=== PATIENT | female | born 1990 | race Caucasian/White ===

== ENCOUNTER → 2020-05-19 16:36 | Outpatient (CLI) | payer BC, SELFPAY ==
[2015-03-31 12:14] VITALS: BMI 41.2
[2020-05-19 17:38] LABS: Absolute Lymphocyte Count 2.67 X10^3/uL (0.83-4.51); Absolute Neutrophil Count 6.6 X10^3/uL (2.0-7.7); Basophil# 0.06 X10^3/uL; Basophil% 0.6 % (0-1); Eosinophil# 0.09 X10^3/uL; Eosinophils% 0.9 % (0-5); Hematocrit 40.1 % (37-47); Hemoglobin 12.9 g/dL (12.0-15.0); Lymphocyte # 2.67 X10^3/ul (4.0); Lymphocyte % 27.2 % (19-41); Mean Corp Hgb Conc 32.2 g/dL (32-36); Mean Platelet Vol. 8.5 fl (6.2-12.0); Monocyte% 4.1 % (0-10); NRBC Flagged by Analyzer 0 % (0-5); Neutrophil # 6.55 X10^3/uL (2.7-7.7); Neutrophil % 66.6 % (47-70); Platelet Count 384 K/mm3 (150-450); RBC Distribution Width CV 14.1 % (11.6-14.6); RBC Distribution Width SD 44.8 fl (35.1-43.9); Red Blood Count 4.61 M/mm3 (4.2-5.4); White Blood Count 9.8 K/mm3 (4.4-11.0)
[2020-05-19 18:14] LABS: ALB/GLOB Ratio 0.8 RATIO (0.9-2.4); AST(SGOT) 16 U/L (15-37); Alanine Aminotransfer ALT/SGPT 37 U/L (13-56); Albumin, Serum 3.6 g/dL (3.2-5.0); Alkaline Phosphatase 112 U/L (45-117); Anion Gap 8 (5-15); BUN 15 mg/dL (7-18); BUN/Creat Ratio 17.8 RATIO (10-20); Calcium,Total 9.4 mg/dL (8.5-10.1); Chloride 106 mmol/L (98-107); Creatinine, Serum 0.84 mg/dL (0.55-1.02); EST Glomerular Filtration Rate 85 mL/min (>60); Est Glom Filt Rate - Afr Amer 102 mL/min (>60); Globulin 4.6 g/dL (2.2-4.2); Glucose 115 mg/dL (74-106); Potassium 3.8 mmol/L (3.5-5.1); Protein, Total 8.2 g/dL (6.4-8.2); Sodium Level 139 mmol/L (136-145); Thyroid Stim Hormone (TSH) 5.19 uIU/mL (0.358-3.74)
[2020-05-23 21:13] LABS: HPV Reflexed? NOT INDICATED
== END ==
PROVIDERS: PCP Family Medicine; Referring Provider Family Medicine; Visit Provider Registered Nurse
DX: Z00.00 Encounter for general adult medical examination without abnormal findings (principal)
CPT/HCPCS: 36415; 80053; 84443; 85025; 88175; G0145

== ENCOUNTER → 2020-05-23 16:46 | Outpatient (CLI) | payer BC, SELFPAY ==
[2015-03-31 12:14] VITALS: BMI 41.2
[2020-05-23 19:23] LABS: Free T3 2.6 pg/mL (2.18-3.98); T4 Free Direct 0.75 ng/dL (0.76-1.46)
[2020-06-05 12:25] LABS: Anti-Thyroglobulin AB 4.1 IU/mL (0.0-0.9); Thyroglobulin RIA 13 ng/mL (.)
== END ==
PROVIDERS: PCP Family Medicine; Referring Provider Family Medicine; Visit Provider Registered Nurse
DX: E03.9 Hypothyroidism, unspecified (principal)
CPT/HCPCS: 36415; 84432; 84439; 84481; 86800

== ENCOUNTER → 2020-07-03 09:36 | Outpatient (CLI) | payer BC, SELFPAY ==
[2015-03-31 12:14] VITALS: BMI 41.2
== END ==
PROVIDERS: PCP Family Medicine; Visit Provider Family Medicine
DX: E03.9 Hypothyroidism, unspecified (principal)
CPT/HCPCS: 36415; 84443

== ENCOUNTER → 2020-11-03 09:22 | Outpatient (CLI) | payer BC, SELFPAY ==
[2015-03-31 12:14] VITALS: BMI 41.2
[2020-11-03 11:05] LABS: Anion Gap 6 (5-15); BUN 12 mg/dL (7-18); BUN/Creat Ratio 14.2 RATIO (10-20); Calcium,Total 8.8 mg/dL (8.5-10.1); Chloride 104 mmol/L (98-107); Cholesterol 211 mg/dL (200); Creatinine, Serum 0.85 mg/dL (0.55-1.02); EST Glomerular Filtration Rate 84 mL/min (>60); Est Glom Filt Rate - Afr Amer 102 mL/min (>60); Free T3 2.9 pg/mL (2.18-3.98); Glucose 115 mg/dL (74-106); High Density Lipoprotein 31 mg/dL; Potassium 4.1 mmol/L (3.5-5.1); Sodium Level 137 mmol/L (136-145); T4 Free Direct 1.06 ng/dL (0.76-1.46); Thyroid Stim Hormone (TSH) 1.89 uIU/mL (0.358-3.74); Triglycerides 133 mg/dL; Very Low Density Lipoprotein 27 mg/dL (5-40)
== END ==
PROVIDERS: PCP Family Medicine; Visit Provider Family Medicine
DX: E78.5 Hyperlipidemia, unspecified (principal); E03.9 Hypothyroidism, unspecified
CPT/HCPCS: 36415; 80048; 80061; 83036; 84439; 84443; 84481

== ENCOUNTER 2020-11-17 09:36 | Emergency (ER) | payer BC, SELFPAY ==
[2020-11-17 09:38] VITALS: BP 151/105; PULSE 105; RESP 18; TEMP 36.5; O2SAT 97; BMI 54.2
--- NOTE | 2020-11-17 09:53 | EDS_ITS ---
HPI History of Present Illness Chief Complaint: Flank Pain Informant: patient Onset/Context/Timing Onset: Yesterday Context: Gradual Onset Timing: Waxes and wanes Current Severity: Moderate Maximum Severity: Severe Narrative Narrative: Patient presents secondary to right flank pain. She states pain started around 4 PM yesterday afternoon. It was primarily in her back and is now radiating down into the groin line. She is had nausea and vomiting. She denies fever or chills. No dysuria. She does report feeling the urge to urinate frequently but only goes small amounts. Patient was seen at urgent care. Urinalysis there reportedly did show blood in her urine. She was sent here due to concern for kidney stone. [facility] Medical History (Updated 11/17/20 @ 11:[address] Khushboo Mcdaniel MD) High cholesterol Hypothyroid Prediabetes Home Medications hydrocodone-acetaminophen 1 tab PO Q6H PRN 3 Days #10 tab 11/17/20 [Rx Last Taken Unknown] ketorolac 10 mg PO Q6H PRN 3 Days #14 tab 11/17/20 [Rx Last Taken Unknown] levothyroxine 100 mcg PO DAILY 11/17/20 [History Last Taken Unknown] metformin 500 mg PO DAILY 11/17/20 [History Last Taken Unknown] ondansetron 4 mg PO Q8H PRN #10 tab 11/17/20 [Rx Last Taken Unknown] rosuvastatin 5 mg PO DAILY 11/17/20 [History Last Taken Unknown] Allergy/AdvReac Type Severity Reaction Status Date / Time No Known Allergies Allergy Verified 11/17/20 09:37 Surgical History (Updated 11/17/20 @ 09:58 by Rachel Massey) History of cholecystectomy History of tonsillectomy and adenoidectomy Social History Smoking Status: Never smoker ROS ROS ED Constitutional Constitutional ED: Denies chills or fever(s) Eyes Eyes: Denies change in vision ENT ENT ED: Denies sore throat Cardiovascular Cardiovascular: Denies chest pain Respiratory/Chest Respiratory/Chest: Denies cough or dyspnea Gastrointestinal Gastrointestinal: Reports abdominal pain, nausea and vomiting; Denies diarrhea Genitourinary Genitourinary ED: Reports urinary frequency; Denies dysuria Musculoskeletal Musculoskeletal: Reports back pain Integumentary Denies rash Neurologic Neurologic: Denies headache(s) or weakness Psychiatric Psychiatric: Denies anxiety or depression Endocrine Endocrinology: Denies polydipsia or polyuria Allergic/Immunologic Allergic/Immunologic ED: Denies urticaria EXAM Physical Exam Const Vital Signs: 11/17/20 09:38 Temperature 97.7 F L Temperature Source Oral Pulse Rate 105 H Respiratory Rate 18 Blood Pressure 151/105 H Blood Pressure Mean 120 Pulse Ox 97 Oxygen Delivery Method Room Air Positive well nourished and well developed General Appearance ED: well developed HEENT Reports normocephalic and head/scalp atraumatic Eyes PERRL and EOMs intact bilaterally Neck supple Chest Wall inspection of chest normal and palpation of chest normal Resp normal respiratory effort and clear to auscultation bilaterally Cardio regular rate and regular rhythm GI non-tender Auscultation: hypoactive bowel sounds Palpation: soft Back/Spine no CVA tenderness Extremity normal to inspection Neuro oriented x3 and no sensory deficits noted Sensorium / Orientation: alert Motor Exam: strength 5/5 throughout Psych mental status grossly normal Skin no rashes or lesions noted MDM MDM MDM Narrative Medical decision making narrative: Patient was given morphine, Toradol, Zofran, IV fluids. Urinalysis was already performed at urgent care and not repeated. CBC and chemistry studies along with test are obtained here. CT flank obtained. Lab Data Attestation: I reviewed the patient's lab results. Labs: Laboratory Results - last 24 hr 11/17/20 11/17/20 11/17/20 10:00 10:00 10:00 WBC 11.5 H RBC 4.67 Hgb 13.1 Hct 40.3 MCV 86.3 MCH 28.1 MCHC 32.5 RDW Std Deviation 43.8 RDW Coeff of Cory 14.1 Plt Count 350 MPV 8.3 Immature Gran % (Auto) 0.800 Neut % (Auto) 80.2 H Lymph % (Auto) 15.1 L [place] % (Auto) 3.1 Eos % (Auto) 0.4 Baso % (Auto) 0.4 Absolute Neuts (auto) 9.2 H Absolute Lymphs (auto) 1.74 Nucleated RBC % 0 Sodium 137 Potassium 4.2 Chloride 106 Carbon Dioxide 25.0 Anion Gap 6 BUN 13 Creatinine 0.90 Estim Creat Clear Calc 86.34 Est GFR (MDRD) Af Amer 95 Est GFR (MDRD) Non-Af 78 BUN/Creatinine Ratio 14.4 Glucose 143 H Calcium 9.0 Serum , Qual NEGATIVE Radiography Diagnostic Testing: Radiology Impression Abdomen/Pelvis CT 11/17/20 11:02 IMPRESSION: Mild right hydronephrosis and hydroureter. There is a 2 mm stone in the proximal right ureter on axial image 94. There is also an asymmetric calcification within the right pelvis on axial image 168 but this appears to be extrinsic to the distal right ureter Nonobstructing right nephrolithiasis Fatty liver, no discrete lesion No free intraperitoneal fluid, air, or suspicious adenopathy Normal appendix visualized Electronically Signed: Jd Clark MD at 11:22 EDT , Service support , Treatment and Re-Evaluation Comments:: On repeat evaluation patient reports significant improvement in her pain. Test results are discussed with her and family at bedside. Patient will be given analgesics and referred to Dr. Rebolledo for follow-up as needed. Return instructions are provided. Discharge Plan Triage Chief Complaint: Flank Pain ED Provider: Khushboo Mcdaniel Dx/Rx/DC Orders Clinical Impression: Ureterolithiasis Instructions: ED Kidney Stone w/ Colic Prescriptions: New hydrocodone-acetaminophen 5-325 mg tablet 1 tab PO Q6H PRN (Reason: pain) 3 Days Qty: 10 RF: 0 ondansetron 4 mg tablet,disintegrating 4 mg PO Q8H PRN (Reason: nausea and vomiting) Qty: 10 RF: 0 ketorolac 10 mg tablet 10 mg PO Q6H PRN (Reason: pain) 3 Days Qty: 14 RF: 0 No Action metformin 500 mg tablet 500 mg PO DAILY RF: 0 levothyroxine 100 mcg tablet 100 mcg PO DAILY RF: 0 rosuvastatin 5 mg tablet 5 mg PO DAILY RF: 0 Primary Care Provider: Manuel Pinon Referrals: Remedios Rebolledo MD [STAFF PHYSICIAN] - As Needed Manuel Pinon MD [Primary Care Provider] - Disposition Disposition: Home, Self Care
[2020-11-17] MEDS: Ondansetron 4 MG/2 ML Vial IV (10:01)
[2020-11-17] MEDS: Ketorolac 30 MG/ML Syringe IV (10:02)
[2020-11-17] MEDS: Morphine 4 MG/ML Syringe IV (10:03)
[2020-11-17] MEDS: 0.9% Normal Saline 1,000 ML 150 ML IV (10:06)
[2020-11-17 10:18] LABS: Absolute Lymphocyte Count 1.74 X10^3/uL (0.83-4.51); Absolute Neutrophil Count 9.2 X10^3/uL (2.0-7.7); Basophil# 0.05 X10^3/uL; Basophil% 0.4 % (0-1); Eosinophil# 0.05 X10^3/uL; Eosinophils% 0.4 % (0-5); Hematocrit 40.3 % (37-47); Hemoglobin 13.1 g/dL (12.0-15.0); Lymphocyte # 1.74 X10^3/ul (0.83-4.51); Lymphocyte % 15.1 % (19-41); Mean Corp Hgb Conc 32.5 g/dL (32-36); Mean Corpuscular Hgb 28.1 pg (27.0-32.0); Mean Corpuscular Volume 86.3 fL (81-99); Mean Platelet Vol. 8.3 fl (6.2-12.0); Monocyte# 0.36 X10^3/uL; Monocyte% 3.1 % (0-10); NRBC Flagged by Analyzer 0 % (0-5); Neutrophil # 9.22 X10^3/uL (2.7-7.7); Neutrophil % 80.2 % (47-70); Platelet Count 350 K/mm3 (150-450); RBC Distribution Width CV 14.1 % (11.6-14.6); RBC Distribution Width SD 43.8 fl (35.1-43.9); Red Blood Count 4.67 M/mm3 (4.2-5.4); White Blood Count 11.5 K/mm3 (4.4-11.0)
[2020-11-17 10:26] LABS: Anion Gap 6 (5-15); BUN 13 mg/dL (7-18); BUN/Creat Ratio 14.4 RATIO (10-20); Chloride 106 mmol/L (98-107); EST Glomerular Filtration Rate 78 mL/min (>60); Est Glom Filt Rate - Afr Amer 95 mL/min (>60); Estimated Creatinine Clearance 86.34 ml/min; Glucose 143 mg/dL (74-106); Potassium 4.2 mmol/L (3.5-5.1); Sodium Level 137 mmol/L (136-145)
[2020-11-17 10:51] LABS: Internal QC Validated? YES +Cl - CLEAR BKGD; Pregnancy, Serum, hCG Quali. NEGATIVE Negative
--- NOTE | 2020-11-17 11:02 | CT_ITS ---
STUDY: CT ABDOMEN AND PELVIS WITHOUT CONTRAST REASON FOR EXAM: Female, 30 years old. Right flank pain RADIATION DOSAGE (If Supplied By Facility): CTDIvol = ( 24.16 ) mGy, DLP = ( 1382.44 ) mGycm TECHNIQUE: Transaxial images were obtained from the dome of the diaphragm to the symphysis pubis without oral contrast, and without intravenous contrast. Sagittal and coronal images were reconstructed. Individualized dose optimization techniques were used for this CT. COMPARISON: None. FINDINGS: The visualized lung bases are unremarkable. The visualized portions of the heart are within normal limits. There is decreased attenuation of the liver consistent with steatosis. There is non-visualization of the gallbladder, which may be secondary to either contraction or a prior cholecystectomy. Normal spleen. Normal pancreas. Normal bilateral adrenal glands. There is mild right hydronephrosis and proximal hydroureter. Findings due to a 2 mm stone in the proximal right ureter on axial image 94. There is also a punctate calcification within the right pelvis on axial image 168 but I suspect this is a phlebolith as it appears to be extrinsic to the distal ureter. There are punctate nonobstructing right renal stones. Left kidney is free of obstructive uropathy. Normal visualized stomach. Normal small intestine. Normal colon. The appendix is visualized and appears normal. Appendix seen on coronal recon images 76 through 84 Normal abdominal aorta. Normal inferior vena cava. Normal retroperitoneum. Normal urinary bladder. Normal-appearing uterus, and ovaries, no suspicious cystic mass or free fluid Normal abdominal wall. Normal osseous structures. CT/Abdomen/Pelvis without Cont IMPRESSION: Mild right hydronephrosis and hydroureter. There is a 2 mm stone in the proximal right ureter on axial image 94. There is also an asymmetric calcification within the right pelvis on axial image 168 but this appears to be extrinsic to the distal right ureter Nonobstructing right nephrolithiasis Fatty liver, no discrete lesion No free intraperitoneal fluid, air, or suspicious adenopathy Normal appendix visualized Electronically Signed: Jd Clark MD at 11:22 EDT , Service support ,
[2020-11-17 11:39] VITALS: BP 123/75; PULSE 69; RESP 18
== END 2020-11-17 11:41 | disposition home or self-care (01) ==
PROVIDERS: Emergency Provider Emergency Medicine; PCP Family Medicine
DX: N13.2 Hydronephrosis with renal and ureteral calculous obstruction (principal); K76.0 Fatty (change of) liver, not elsewhere classified; Z90.49 Acquired absence of other specified parts of digestive tract; E78.00 Pure hypercholesterolemia, unspecified; E03.9 Hypothyroidism, unspecified; R73.03 Prediabetes; Z79.84 Long term (current) use of oral hypoglycemic drugs; Z79.899 Other long term (current) drug therapy
CPT/HCPCS: 74176; 80048; 84703; 85025; 96361; 96374; 96375; 99285; J7030; A4216; J2405

== ENCOUNTER → 2021-02-14 09:01 | Outpatient (CLI) | payer BC, SELFPAY ==
[2021-02-14 10:20] LABS: Hemoglobin A1c 5.8 % (3.8-5.6)
[2021-02-14 10:21] LABS: Internal QC Validated? YES +Cl - CLEAR BKGD; Pregnancy, Serum, hCG Quali. NEGATIVE Negative
[2021-02-14 10:36] LABS: Anion Gap 8 (5-15); BUN 13 mg/dL (7-18); BUN/Creat Ratio 15.9 RATIO (10-20); Calcium,Total 9.4 mg/dL (8.5-10.1); Chloride 105 mmol/L (98-107); Cholesterol 147 mg/dL (200); Creatinine, Serum 0.82 mg/dL (0.55-1.02); EST Glomerular Filtration Rate 87 mL/min (>60); Est Glom Filt Rate - Afr Amer 106 mL/min (>60); Follicle Stimulating Hormone 6.5 mIU/mL; Free T3 2.9 pg/mL (2.18-3.98); Glucose 119 mg/dL (74-106); High Density Lipoprotein 29 mg/dL; Luteinizing Hormone 18.3 mIU/mL; Potassium 4.1 mmol/L (3.5-5.1); Sodium Level 138 mmol/L (136-145); T4 Total, Thyroxin 10.4 ug/dL (4.8-13.9); Thyroid Stim Hormone (TSH) 1.08 uIU/mL (0.358-3.74); Triglycerides 162 mg/dL; Very Low Density Lipoprotein 32 mg/dL (5-40)
[2021-02-17 21:10] LABS: Estrogen, Total, Serum 175 pg/mL (.)
== END ==
PROVIDERS: PCP Family Medicine; Referring Provider Family Medicine; Visit Provider Family Medicine
DX: E11.9 Type 2 diabetes mellitus without complications (principal); E03.9 Hypothyroidism, unspecified; N91.2 Amenorrhea, unspecified
CPT/HCPCS: 36415; 80048; 80061; 82672; 83001; 83002; 83036; 84436; 84443; 84481; 84703

== ENCOUNTER → 2021-12-03 | Outpatient (CLI) | payer BC, SELFPAY ==
[2021-12-03 10:50] LABS: ALB/GLOB Ratio 0.7 RATIO (0.9-2.4); AST(SGOT) 24 U/L (15-37); Alanine Aminotransfer ALT/SGPT 47 U/L (13-56); Albumin, Serum 3.4 g/dL (3.2-5.0); Alkaline Phosphatase 118 U/L (45-117); Anion Gap 4 (5-15); BUN 13 mg/dL (7-18); BUN/Creat Ratio 15.1 RATIO (10-20); Calcium,Total 8.9 mg/dL (8.5-10.1); Chloride 106 mmol/L (98-107); Cholesterol 194 mg/dL (200); Creatinine, Serum 0.86 mg/dL (0.55-1.02); EST Glomerular Filtration Rate 82 mL/min (>60); Est Glom Filt Rate - Afr Amer 99 mL/min (>60); Globulin 4.7 g/dL (2.2-4.2); Glucose 118 mg/dL (74-106); High Density Lipoprotein 29 mg/dL; Potassium 4.1 mmol/L (3.5-5.1); Protein, Total 8.1 g/dL (6.4-8.2); Sodium Level 137 mmol/L (136-145); T4 Free Direct 1.33 ng/dL (0.76-1.46); Thyroid Stim Hormone (TSH) 0.02 uIU/mL (0.358-3.74); Triglycerides 194 mg/dL; Very Low Density Lipoprotein 39 mg/dL (5-40)
== END | disposition home or self-care (01) ==
LOC: LAB 09:32
PROVIDERS: PCP Family Medicine; Visit Provider Internal Medicine Endocrinology, Diabetes & Metabolism
DX: E03.8 Other specified hypothyroidism (principal); E06.3 Autoimmune thyroiditis; E28.2 Polycystic ovarian syndrome; E66.9 Obesity, unspecified; R73.09 Other abnormal glucose
CPT/HCPCS: 36415; 80053; 80061; 83036; 84439; 84443

== ENCOUNTER 2021-12-07 10:53 | Emergency (ER) | payer BC, SELFPAY ==
[2021-12-07 10:54] VITALS: BP 146/104; PULSE 99; RESP 18; TEMP 36.6; O2SAT 99; BMI 52.6
--- NOTE | 2021-12-07 11:16 | EDS_ITS ---
HPI HPI - GI History of Present Illness Chief Complaint: Abd Pain Informant: patient Abdominal Pain/Flank Pain Onset: Today Context: Sudden Onset Timing: Continuous Quality: Aching Location: Right Flank (radiating into R groin) Current Severity: Mild Maximum Severity: Severe Worsened by: Nothing Relieved by: - (oral ketorolac) Nausea/Vomiting/Emesis GI Symptom: Positive for Nausea and Vomiting Diarrhea/Melena/Hematochezia GI Symptom: Negative for Diarrhea, Melena or Hematochezia Associated Symptoms Associated Symptoms: Positive for Urgency (And only went a little when it felt like she really needed to go this morning after pain started); Negative for Dysuria, Frequency or Hematuria Narrative Narrative: History of kidney stones about a year ago, she was told she had another stone in her right kidney, she feels like she is having the same pain acutely this morning. Nausea vomiting associated with it. Radiates down into her groin. 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 Kidney stone Obesity PCOS (polycystic ovarian syndrome) Prediabetes Thyroid disease UTI (urinary tract infection) Vision problems Home Medications bupropion HCl 300 mg 24 hr tablet, extended release ea PO 06/04/21 [History Last Taken Unknown] rosuvastatin 10 mg tablet 10 mg PO 06/04/21 [History Last Taken Unknown] levothyroxine 150 mcg tablet 150 mcg PO DAILY #90 tabs 12/03/21 [Rx Last Taken Unknown] metformin 1,000 mg tablet 1,000 mg PO BID #180 tabs 12/03/21 [Rx Last Taken Unknown] hydrocodone-acetaminophen 5-325mg 5mg-325mg 1 tab PO Q4H PRN PRN Pain 3 days #15 TABLETS 12/07/21 [Rx Last Taken Unknown] ondansetron 4 mg disintegrating tablet 8 mg PO Q8H PRN PRN Nausea #20 tabs 12/07/21 [Rx Last Taken Unknown] Allergy/AdvReac Type Severity Reaction Status Date / Time No Known Allergies Allergy Verified 12/07/21 10:55 Family History Other Blood clot in vein CVA (cerebral vascular accident) Cancer Colon cancer Diabetes Gall bladder disease Gout High cholesterol Hypertension Myocardial infarction Pancreatitis Parkinson disease Seizures Severe allergy Thyroid disorder Uterine cancer Surgical History History of cholecystectomy History of tonsillectomy and adenoidectomy Social History Smoking Status: Never smoker alcohol intake: current alcohol intake frequency: holidays/special occasions only substance use type: does not use what type of physical activity do you participate in: walking frequency: 1-2 times per week ROS ROS ED Constitutional Constitutional ED: Denies chills or fever(s) Eyes Eyes: Denies change in vision or diplopia ENT ENT ED: Denies rhinorrhea or sore throat Cardiovascular Cardiovascular: Denies chest pain or palpitations Respiratory/Chest Respiratory/Chest: Denies cough or dyspnea Gastrointestinal Gastrointestinal: Reports abdominal pain, nausea and vomiting; Denies diarrhea Genitourinary Genitourinary ED: Reports flank pain and urinary urgency; Denies dysuria or hematuria Musculoskeletal Musculoskeletal: Denies back pain or neck pain Integumentary Denies abscess or rash Neurologic Neurologic: Denies headache(s), paresthesias or weakness Psychiatric Psychiatric: Denies anxiety or suicidal thoughts EXAM Physical Exam Const Vital Signs: 12/07/21 10:54 Temperature 98 F Temperature Source Temporal Pulse Rate 99 Respiratory Rate 18 Blood Pressure 146/104 H Blood Pressure Mean 118 Pulse Ox 99 Oxygen Delivery Method Room Air Positive well nourished and well developed Constitutional Narrative: Morbidly obese. Well-appearing. General Appearance ED: well developed and NAD HEENT Reports moist mucous membranes normocephalic and atraumatic Eyes PERRL and EOMs intact bilaterally Neck full ROM and supple Resp normal respiratory effort and clear to auscultation bilaterally Cardio regular rate, regular rhythm and no murmurs GI non-tender and non-distended Auscultation: normoactive bowel sounds Palpation: soft Back/Spine no CVA tenderness General Back: other FROM Extremity normal to inspection General Extremety ED: Negative for edema, pulses abnormal or tenderness General Extremity: Negative for edema or pulses abnormal Neuro oriented x3, CN's II-XII intact bilaterally and no sensory deficits noted Sensorium / Orientation: awake and alert Motor Exam: strength 5/5 throughout Skin no rashes or lesions noted and no wounds MDM MDM MDM Narrative Medical decision making narrative: KUB was obtained on my interpretation and may show a small urolith in the pelvis. Radiology read it is negative. She had a CT a year ago that showed very small calcifications that were nonobstructing in the right kidney. I do not think she needs another CT, her symptoms are more consistent with a UVJ stone, she controlled her own symptoms prior to arrival, and she has a small amount of white blood cells in the urine, I do not think she is infected but I sent a culture to ensure this. Symptomatic expectant management is indicated right now, she was given analgesics and antiemetics here prescriptions and strainers and given instructions to return and/or follow-up she is comfortable with that plan. Lab Data Attestation: I reviewed the patient's lab results. Labs: Laboratory Results - last 24 hr 12/07/21 11:10 Urine Color Yellow Urine Clarity Clear Urine pH 7.0 Ur Specific [place] 1.010 Urine Protein 30 H Urine Glucose (UA) Normal Urine Ketones 5 H Urine Occult Blood 25 H Urine Nitrite Negative Urine Bilirubin Negative Urine Urobilinogen Normal Ur Leukocyte Esterase 100 H Urine RBC 0-5 SEEN Urine WBC 5-10 SEEN Ur Squamous Epith Cells 5-10 SEEN Urine Bacteria 1+ Urine Mucus Not Reportable Urine Test Negative Radiography Diagnostic Testing: Clinical Impression(s) from Imaging Studies KUB X-Ray 12/07/21 11:20 IMPRESSION: Normal x-ray examination of the abdomen and pelvis. Electronically Signed: Norman Cortez MD at 12:04 EDT , Discharge Plan Triage Chief Complaint: Abd Pain ED Provider: Shamir Rodriguez Dx/Rx/DC Orders Clinical Impression: Ureterolithiasis, Renal colic on right side Instructions: ED Kidney Stone w/ Colic Prescriptions: New hydrocodone-acetaminophen [hydrocodone-acetaminophen] 5-325 mg tablet 1 tab PO Q4H PRN PRN (Reason: Pain) 3 Days Qty: 15 0RF ondansetron [ondansetron] 4 mg tablet,disintegrating 8 mg PO Q8H PRN PRN (Reason: Nausea) Qty: 20 0RF No Action bupropion HCl 300 mg tablet extended release 24 hr PO Label Comments: TAKE 1 TABLET BY MOUTH ONCE DAILY rosuvastatin 10 mg tablet 10 mg PO Label Comments: TAKE 1 TABLET BY MOUTH ONCE DAILY levothyroxine 150 mcg tablet 150 mcg PO DAILY Qty: 90 1RF metformin 1,000 mg tablet 1,000 mg PO BID Qty: 180 1RF Primary Care Provider: Manuel Pinon Referrals: Remedios Rebolledo MD [Med Staff - Active Staff] - 1-2 Weeks (if not able to pass stone/resolve pain) Manuel Pinon MD [Primary Care Provider] - Disposition Disposition: Home, Self Care
--- NOTE | 2021-12-07 11:20 | RAD_ITS ---
STUDY: X-RAY - ABDOMEN/PELVIS REASON FOR EXAM: Female, 31 years old. R flank pain, hx stones TECHNIQUE: Single AP view of the abdomen / pelvis. COMPARISON: None. FINDINGS: Normal visualized lung bases. There is an unremarkable bowel gas pattern. There is no demonstrated free abdominal air. The visualized liver, spleen and kidneys are grossly normal in size and morphology. Normal soft tissue structures. Normal visualized osseous structures. RAD/Abdomen Single View IMPRESSION: Normal x-ray examination of the abdomen and pelvis. Electronically Signed: Norman Cortez MD at 12:04 EDT ,
[2021-12-07 11:29] LABS: Color, Urine Yellow (Yellow); Glucose, Dipstick Normal (Normal); Ketone-Dipstick 5 mg/dl (Negative); Leukocyte Esterase-Dipstick 100 /ul (Negative); Nitrite-Dipstick Negative (Negative); Occult Blood-Urine 25 /ul (Negative); Protein-Dipstick 30 mg/dl (Negative); Urine Bilirubin Dipstick Negative (Negative); Urine Clarity Clear (Clear); Urine Urobilinogen Normal (Normal)
[2021-12-07] MEDS: HYDROcodone Bitartrate/Apap 5/325 Tablet PO (11:34)
[2021-12-07] MEDS: Ondansetron ODT 4 MG Tablet 8 MG PO (11:34)
[2021-12-07 11:39] LABS: Red Blood Cells-Urine 0-5 SEEN /hpf (0-5); Squamous Epithelial Cells - UA 5-10 SEEN /hpf (5-10); White Blood Cells 5-10 SEEN /hpf (0-5)
[2021-12-07 11:40] LABS: Bacteria 1+ /hpf (None Seen); Internal QC Validated? YES +Cl - CLEAR BKGD; Pregnancy, Urine Negative Negative
== END 2021-12-07 12:25 | disposition home or self-care (01) ==
PROVIDERS: Emergency Provider Emergency Medicine; PCP Family Medicine; Visit Provider Emergency Medicine
DX: N20.1 Calculus of ureter (principal); E11.9 Type 2 diabetes mellitus without complications; N28.89 Other specified disorders of kidney and ureter; Z80.0 Family history of malignant neoplasm of digestive organs; R11.2 Nausea with vomiting, unspecified; Z87.442 Personal history of urinary calculi; E03.9 Hypothyroidism, unspecified; E78.00 Pure hypercholesterolemia, unspecified
CPT/HCPCS: 74018; 81001; 81025; 87086; 87088; 99285

== ENCOUNTER → 2022-05-27 | Outpatient (CLI) | payer BC, SELFPAY ==
[2022-05-27 10:49] LABS: Anion Gap 6 (5-15); BUN 9 mg/dL (7-18); Calcium,Total 8.7 mg/dL (8.5-10.1); Chloride 107 mmol/L (98-107); Cholesterol 197 mg/dL (200); Creatinine, Serum 0.82 mg/dL (0.55-1.02); EST Glomerular Filtration Rate 86 mL/min (>60); Est Glom Filt Rate - Afr Amer 105 mL/min (>60); Glucose 103 mg/dL (74-106); High Density Lipoprotein 28 mg/dL; Potassium 4.3 mmol/L (3.5-5.1); Sodium Level 138 mmol/L (136-145); Triglycerides 162 mg/dL; Very Low Density Lipoprotein 32 mg/dL (5-40); Vitamin D,25 Hydroxy 17.2 ng/mL
[2022-05-27 10:53] LABS: Hemoglobin A1c 5.5 % (3.8-5.6)
== END | disposition home or self-care (01) ==
LOC: MFPLAB 09:24
PROVIDERS: PCP Family Medicine; Referring Provider Family Medicine; Visit Provider Family Medicine
DX: Z00.00 Encounter for general adult medical examination without abnormal findings (principal); E11.9 Type 2 diabetes mellitus without complications
CPT/HCPCS: 36415; 80048; 80061; 82306; 83036

== ENCOUNTER → 2022-12-02 | Outpatient (CLI) | payer OTHER, SELFPAY ==
[2022-12-02 10:35] LABS: Hemoglobin A1c 5.6 % (3.8-5.6)
[2022-12-02 10:41] LABS: ALB/GLOB Ratio 0.8 RATIO (0.9-2.4); AST(SGOT) 42 U/L (15-37); Alanine Aminotransfer ALT/SGPT 80 U/L (13-56); Albumin, Serum 3.5 g/dL (3.2-5.0); Alkaline Phosphatase 108 U/L (45-117); Anion Gap 5 (5-15); BUN 11 mg/dL (7-18); BUN/Creat Ratio 14.7 RATIO (10-20); Calcium,Total 9.2 mg/dL (8.5-10.1); Chloride 104 mmol/L (98-107); Creatinine, Serum 0.75 mg/dL (0.55-1.02); EST Glomerular Filtration Rate 96 mL/min (>60); Est Glom Filt Rate - Afr Amer 116 mL/min (>60); Globulin 4.6 g/dL (2.2-4.2); Glucose 110 mg/dL (74-106); Potassium 4.2 mmol/L (3.5-5.1); Protein, Total 8.1 g/dL (6.4-8.2); Sodium Level 135 mmol/L (136-145)
[2022-12-03 09:26] LABS: T4 Free Direct 1.15 ng/dL (0.76-1.46); Thyroid Stim Hormone (TSH) 0.55 uIU/mL (0.358-3.74)
== END | disposition home or self-care (01) ==
PROVIDERS: PCP Family Medicine; Referring Provider Internal Medicine Endocrinology, Diabetes & Metabolism; Visit Provider Internal Medicine Endocrinology, Diabetes & Metabolism
DX: E03.8 Other specified hypothyroidism (principal); E06.3 Autoimmune thyroiditis; E28.2 Polycystic ovarian syndrome; R73.03 Prediabetes
CPT/HCPCS: 36415; 80053; 83036; 84439; 84443

== ENCOUNTER → 2023-05-26 | Outpatient (CLI) | payer OTHER, SELFPAY ==
--- OUTSIDE RECORDS SUMMARY | 2023-05-26 09:28 | XMS RPT_ITS | CCD ---
Author Name Unknown Address [address] [place] [address] Organization [facility] Results Test Name Value Interpretation Reference Range Facil ity Progress note 11-17-2020 Note Date & Type Note Facility 11-17-2020 Note HNO ID: [id number] Author: Bartolome White MD Service: ? Author Type: Physician Type: Progress Notes Filed: 11/17/2020 9:39 AM Note Text: Patient presents with: UTI: Right side lower back pain, dysuria, vomiting x last night HPI: Started having right lower back pain since yesterday. Dysuria: no. Unable to void this morning Frequency: Yes, feels the need without being able to void. Hematuria: No Nausea: Yes, vomiting this morning. Fever or chills: No Back pain: right lower back constant, severe Abdominal pain: right lower abdomen Prior UTI: College age. Treated for flank pain here 2019 - urine Cx negative. Personal history of kidney stones: not Family history of kidney stones: father. PAST MEDICAL HISTORY Diagnosis Date - Hyperlipidemia - Hypothyroidism - PMH - PAST MEDICAL HISTORY OF 05/19/1996 Color Vision - Normal - Prediabetes PAST SURGICAL HISTORY Procedure Laterality Date - REMOVAL GALLBLADDER - REMOVE TONSILS/ADENOIDS,<12 Y/O 04/21/2003 MEDICATIONS: Current Outpatient Medications Medication Sig - metFORMIN (GLUCOPHAGE) 500 mg tablet Take 500 mg by mouth daily with breakfast. - rosuvastatin (CRESTOR) 5 mg tablet Take 5 mg by mouth once daily. - levothyroxine 100 mcg cap Take 100 mcg by mouth daily before breakfast. No current facility-administered medications for this visit. ALLERGIES: ALLERGIES No Known Allergies VITALS: BP 126/90 Pulse 102 Temp 36.1 ?C (97 ?F) Resp 20 Wt (!) 152.3 kg (335 lb 12.8 oz) LMP 12/29/2010 SpO2 97% PHYSICAL EXAM: GEN: Diaphoretic, holding trash can after vomiting, accompanied by her mother HEENT: EOMI, conjunctiva clear, moist mucous membranes HEART: regular rate and rhythm, no murmurs LUNGS: clear to auscultation, no wheezes or crackles, no increased WOB ABDOMEN: Soft, obese, no masses, no tenderness BACK: right CVA and lumbar tenderness ASSESSMENT/PLAN: 1. Acute right flank pain - ICD9: 789.09, 338.19, ICD10: R10.9 (primary diagnosis) 2. Family history of kidney stones - ICD9: V18.69, ICD10: Z84.1 - UA DIP, URINE (POC) - positive for blood and protein. Negative for LE or nitrite. Suspect renal colic. Referred to the ER for further evaluation and treatment. Report sent to [facility] by [employer]. Bartolome White MD [facility] Summary Purpose Family History No Family History Records Found Advance Directives No Advanced Directives Records Found Additional Source Comments INFORMATION SOURCE (unrecogn ized section and content) FOR RECORDS PERTAINING TO PATIENTS WHO ARE OR HAVE BEEN ENROLLED IN A CHEMICAL DEPENDENCY/SUBSTANCEABUSE PROGRAM, SOME INFORMATION MAY BE OMITTED. This clinical summary was aggregated from multiple sources. Caution should be exercised in using it in the provision of clinical care. This summary normalizes information from multiple sources, and as a consequence, information in this document may materially change the coding, format and clinical context of patient data. In addition, data may be omitted in some cases. CLINICAL DECISIONS SHOULD BE BASED ON THE PRIMARY CLINICAL RECORDS. [employer] provides no warranty or guarantee of the accuracy or completeness of information in this document.
[2023-05-26 10:43] LABS: Anion Gap 6 (5-15); BUN 11 mg/dL (7-18); BUN/Creat Ratio 15.1 RATIO (10-20); Calcium,Total 9.3 mg/dL (8.5-10.1); Chloride 102 mmol/L (98-107); Cholesterol 206 mg/dL (200); Creatinine, Serum 0.73 mg/dL (0.55-1.02); EST Glomerular Filtration Rate 99 mL/min (>60); Est Glom Filt Rate - Afr Amer 119 mL/min (>60); Free T3 2.5 pg/mL (2.18-3.98); Glucose 128 mg/dL (74-106); High Density Lipoprotein 32 mg/dL; Potassium 4.2 mmol/L (3.5-5.1); Sodium Level 134 mmol/L (136-145); T4 Free Direct 1.16 ng/dL (0.76-1.46); Thyroid Stim Hormone (TSH) 0.98 uIU/mL (0.358-3.74); Triglycerides 146 mg/dL; Very Low Density Lipoprotein 29 mg/dL (5-40)
== END | disposition home or self-care (01) ==
LOC: MFPLAB 09:01
PROVIDERS: PCP Family Medicine; Visit Provider Family Medicine
DX: Z00.00 Encounter for general adult medical examination without abnormal findings (principal); E11.9 Type 2 diabetes mellitus without complications; E03.8 Other specified hypothyroidism
CPT/HCPCS: 36415; 80048; 80061; 83036; 84439; 84443; 84481

== ENCOUNTER → 2023-11-24 | Outpatient (CLI) | payer BC, SELFPAY ==
[2023-11-24 10:43] LABS: Anion Gap 7 (5-15); BUN 10 mg/dL (7-18); BUN/Creat Ratio 14.1 RATIO (10-20); Calcium,Total 8.7 mg/dL (8.5-10.1); Chloride 107 mmol/L (98-107); Creatinine, Serum 0.71 mg/dL (0.55-1.02); EST Glomerular Filtration Rate 101 mL/min (>60); Est Glom Filt Rate - Afr Amer 123 mL/min (>60); Free T3 2.6 pg/mL (2.18-3.98); Glucose 120 mg/dL (74-106); Potassium 4.2 mmol/L (3.5-5.1); Sodium Level 140 mmol/L (136-145); Thyroid Stim Hormone (TSH) 0.52 uIU/mL (0.358-3.74)
== END | disposition home or self-care (01) ==
PROVIDERS: PCP Family Medicine; Visit Provider Family Medicine
DX: E03.8 Other specified hypothyroidism (principal); R73.9 Hyperglycemia, unspecified
CPT/HCPCS: 36415; 80048; 84439; 84443; 84481

== ENCOUNTER → 2024-04-29 | Outpatient (CLI) | payer BC, SELFPAY ==
[2024-04-29 11:04] LABS: Anion Gap 7 (5-15); BUN 14 mg/dL (7-18); BUN/Creat Ratio 15.7 RATIO (10-20); Calcium,Total 9.6 mg/dL (8.5-10.1); Chloride 112 mmol/L (98-107); Cholesterol 173 mg/dL (200); Creatinine, Serum 0.89 mg/dL (0.55-1.02); EST Glomerular Filtration Rate 77 mL/min (>60); Est Glom Filt Rate - Afr Amer 94 mL/min (>60); Free T3 2.5 pg/mL (2.18-3.98); Glucose 105 mg/dL (74-106); High Density Lipoprotein 33 mg/dL; Potassium 3.9 mmol/L (3.5-5.1); Sodium Level 139 mmol/L (136-145); Thyroid Stim Hormone (TSH) 0.163 uIU/mL (0.358-3.740); Triglycerides 127 mg/dL; Very Low Density Lipoprotein 25 mg/dL (5-40)
== END | disposition home or self-care (01) ==
LOC: MFPLAB 09:07
PROVIDERS: PCP Family Medicine; Referring Provider Family Medicine; Visit Provider Family Medicine
DX: Z00.00 Encounter for general adult medical examination without abnormal findings (principal); E03.8 Other specified hypothyroidism
CPT/HCPCS: 36415; 80048; 80061; 84439; 84443; 84481

== ENCOUNTER → 2024-06-24 | Outpatient (CLI) | payer BC, SELFPAY ==
[2024-06-24 13:11] LABS: Free T3 2.6 pg/mL (2.18-3.98); Thyroid Stim Hormone (TSH) 0.269 uIU/mL (0.300-4.200)
== END | disposition home or self-care (01) ==
LOC: MFPLAB 10:21
PROVIDERS: PCP Family Medicine; Referring Provider Family Medicine; Visit Provider Family Medicine
DX: E03.8 Other specified hypothyroidism (principal)
CPT/HCPCS: 36415; 84439; 84443; 84481

== ENCOUNTER → 2024-11-17 | Outpatient (CLI) | payer BC, SELFPAY ==
[2024-11-17 11:17] LABS: Free T3 3.1 pg/mL (2.18-3.98)
== END | disposition home or self-care (01) ==
LOC: MFPLAB 08:57
PROVIDERS: PCP Family Medicine; Referring Provider Family Medicine; Visit Provider Family Medicine
DX: E03.8 Other specified hypothyroidism (principal)
CPT/HCPCS: 36415; 84439; 84481

== ENCOUNTER → 2025-02-23 | Outpatient (CLI) | payer BC, SELFPAY ==
[2025-02-23 13:29] LABS: Free T3 2.9 pg/mL (2.18-3.98)
== END | disposition home or self-care (01) ==
LOC: MFPLAB 10:57
PROVIDERS: PCP Family Medicine; Visit Provider Family Medicine
DX: E03.8 Other specified hypothyroidism (principal)
CPT/HCPCS: 36415; 84439; 84443; 84481